=== PATIENT | female | born 1990 | race Two or more races ===

== ENCOUNTER 2022-11-13 08:55 | Day surgery (SDC) | payer OTHER | END 2022-11-13 22:25 | disposition home or self-care (01) | LOC: CIR.AMB 08:55 | PROVIDERS: ATTEND Obstetrics & Gynecology | DX: O02.1 Missed abortion (principal); O72.2 Delayed and secondary postpartum hemorrhage; Z20.822 Contact with and (suspected) exposure to COVID-19 ==

== ENCOUNTER 2024-05-11 14:00 | Inpatient (IN) | payer OTHER ==
[~2024-05-11] VITALS: Ht 188 cm; Wt 84.8 kg
[2024-05-22] MEDS ORDERED: RINGERS SOLUTION,LACTATED 1,000 ML IV SCH (04:30)
[2024-05-22] MEDS ORDERED: PRENATABS RX T1 EACH PO (04:36)
[2024-05-22] MEDS ORDERED: IRON236 MG PO (04:36)
[2024-05-22] MEDS ORDERED: LIDOCAINE HCL 1% 10ML VIAL ONE (07:18)
[2024-05-22] MEDS ORDERED: ERYTHROMYCIN BASE 1 GM TUBE OP ONE (07:18)
[2024-05-22] MEDS ORDERED: CHLORHEXIDINE GLUCONATE 120 ML BOTTLE TOP ONE (07:18)
[2024-05-22] MEDS ORDERED: OXYTOCIN 20 UNITS/1000ML RL PIGGYBAG IV ONE (07:18)
[2024-05-22 07:29] LABS: HEMATOCRIT 35.4 % (36.0-45.00); HEMOGLOBIN 12.1 g/dL (12.0-15.00); MEAN CELL VOLUME 89.4 fL (80.00-100.00); MEAN CORPUSCULAR HEMOGLOBIN 30.6 pg (27.00-32.0); MEAN CORPUSCULAR HGB CONC 34.2 g/dl (32.0-36.0); RED BLOOD COUNT 3.96 M/uL (4.00-6.00); RED CELL DISTRIBUTION WIDTH 15.3 % (11.5-14.5)
[2024-05-22 07:43] LABS: ALBUMIN 2.8 gm/dL (3.4-5.0); BILIRUBIN TOTAL 0.35 mg/dL (0.3-1.2); CALCIUM 8.8 mg/dL (8.5-10.1); CREATININE SERUM 0.56 mg/dL (0.55-1.02); GFR 123.92; GLOBULINA 3.3 G/DL (2.4-3.5); POTASSIUM 3.75 mEq/L (3.5-5.1); TOTAL PROTEIN 6.1 gm/dL (6.4-8.2)
[2024-05-22 08:01] LABS: PLATELET COUNT 116 K/uL (150-450)
[2024-05-22 08:09] LABS: INR < 0.93; PARTIAL THROMBOPLASTIN TIME 29.1 SECONDS (22.0-34.0); PROTHROMBIN TIME 10.2 SECONDS (9.0-11.5)
[2024-05-22] MEDS ORDERED: MORPHINE SULFATE 4 MG/ML CARTRIDGE IV ONE (08:30)
[2024-05-22] MEDS ORDERED: METHYLERGONOVINE MALEATE 0.2 MG/ML AMPUL ONE (09:43)
[2024-05-22] MEDS ORDERED: METHYLERGONOVINE MALEATE 0.2 MG/ML AMPUL IM STA (10:26)
[2024-05-22] MEDS ORDERED: CHLORHEXIDINE GLUCONATE 120 ML BOTTLE TOP SCH (10:30)
[2024-05-22] MEDS ORDERED: OXYTOCIN 1,000 ML IV SCH (10:30)
[2024-05-22] MEDS ORDERED: ERYTHROMYCIN BASE 1 GM TUBE OP SCH (10:30)
[2024-05-22] MEDS ORDERED: DOCUSATE SODIUM 100MG CAP PO SCH (10:31)
[2024-05-22] MEDS ORDERED: LIDOCAINE HCL 1% 20ML VIAL IJ ONE (10:45)
[2024-05-22] MEDS ORDERED: KETOROLAC TROMETHAMINE 10 MG TABLET PO SCH (12:00)
[2024-05-22] MEDS ORDERED: OxyCODONE HCL/APAP UD (PERCOCET) PO SCH (13:00)
== END 2024-05-24 14:08 | disposition home or self-care (01) | DRG 768 ==
LOC: OB/GYN 05-21 14:00 → LDR 05-22 04:08 → OB/GYN 05-22 10:30
PROVIDERS: Obstetrics & Gynecology Maternal & Fetal Medicine; ADMIT Obstetrics & Gynecology; ATTEND Obstetrics & Gynecology
PROC: 10E0XZZ Delivery of Products of Conception, External Approach (ICD-10-PCS; principal; 2024-05-22)
PROC: 0DQR0ZZ Repair Anal Sphincter, Open Approach (ICD-10-PCS; 2024-05-22)
PROC: 0W8NXZZ Division of Female Perineum, External Approach (ICD-10-PCS; 2024-05-22)
PROC: 4A1HXCZ Monitoring of Products of Conception, Cardiac Rate, External Approach (ICD-10-PCS; 2024-05-22)
DX: O70.21 Third degree perineal laceration during delivery, IIIa (principal); Z37.0 Single live birth; Z3A.40 40 weeks gestation of pregnancy; Z20.822 Contact with and (suspected) exposure to COVID-19

== ENCOUNTER 2024-05-14 08:59 | Outpatient (CLI) | payer OTHER | END 2024-05-14 10:05 | disposition home or self-care (01) | LOC: NST 08:59 | PROVIDERS: ATTEND Obstetrics & Gynecology Gynecology | DX: Z34.83 Encounter for supervision of other normal pregnancy, third trimester (principal) ==

== ENCOUNTER 2024-05-21 12:43 | Outpatient (CLI) | payer OTHER ==
[2024-05-22] MEDS ORDERED: PRENATABS RX T1 EACH PO (04:36)
[2024-05-22] MEDS ORDERED: IRON236 MG PO (04:36)
== END 2024-05-21 13:35 | disposition home or self-care (01) ==
LOC: NST 12:43
PROVIDERS: ATTEND Obstetrics & Gynecology
DX: Z34.83 Encounter for supervision of other normal pregnancy, third trimester (principal)